=== PATIENT | female | born 1995 | race Two or more races ===

== ENCOUNTER 2020-03-10 22:58 | Emergency (ER) | payer OTHER ==
[~2020-03-10] VITALS: Ht 160 cm; Wt 63.5 kg
[2020-03-11] MEDS ORDERED: KETO10TA2 PO (03:46)
[2020-03-11] MEDS ORDERED: KEFLEX500 MG PO (03:46)
== END 2020-03-11 03:58 | disposition home or self-care (01) ==
LOC: ER 22:58
DX: N39.0 Urinary tract infection, site not specified (principal); R10.2 Pelvic and perineal pain; Z03.818 Encounter for observation for suspected exposure to other biological agents ruled out

== ENCOUNTER 2022-12-23 09:09 | Emergency (ER) | payer OTHER ==
[~2022-12-23] VITALS: Ht 160 cm; Wt 69.9 kg
[~2022-12-23 09:09] MED LIST: KEFLEX500 MG PO; KETO10TA2 PO
[2022-12-23 10:09] LABS: HEMATOCRIT 38.9 % (36.0-45.00); HEMOGLOBIN 12.5 g/dL (12.0-15.00); MEAN CELL VOLUME 79.1 fL (80.00-100.00); MEAN CORPUSCULAR HEMOGLOBIN 25.5 pg (27.00-32.0); MEAN CORPUSCULAR HGB CONC 32.2 g/dl (32.0-36.0); PLATELET COUNT 219 K/uL (150-450); RED BLOOD COUNT 4.93 M/uL (4.00-6.00); RED CELL DISTRIBUTION WIDTH 13.9 % (11.5-14.5)
[2022-12-23] MEDS ORDERED: ZYRTEC10 MG PO (10:56)
[2022-12-23] MEDS ORDERED: OSEL75CA PO (10:56)
[2022-12-23] MEDS ORDERED: TUSNEL LIQUID178 ML PO (10:56)
== END 2022-12-23 10:58 | disposition home or self-care (01) ==
LOC: ER 09:09
PROVIDERS: General Practice
DX: B34.9 Viral infection, unspecified (principal); J10.1 Influenza due to other identified influenza virus with other respiratory manifestations; Z20.822 Contact with and (suspected) exposure to COVID-19